=== PATIENT | female | born 1980 | race Caucasian/White ===

== ENCOUNTER 2017-10-16 19:31 | Emergency (ER) | END 2017-10-16 23:39 | disposition home or self-care (01) ==

== ENCOUNTER 2018-01-26 06:08 | Day surgery (SDC) | END 2018-01-26 12:05 | disposition home or self-care (01) ==

== ENCOUNTER 2018-10-04 15:56 | Observation (INO) | payer OTHER ==
[~2018-10-04] VITALS: Ht 157.5 cm; Wt 73.1 kg
[~2018-10-04 15:56] MED LIST: HYDR-4011 PO; IBUP-1561 PO; RANI150T35 PO
--- NOTE | 2018-10-04 20:50 | ERD ---
ER Documentation Chief Complaint Chief Complaint 8 WKS PREG WITH PELVIC PAIN & MINOR VAGINAL BLEEDING HPI 38-year-old female, presents to the emergency department, complaining of pelvic pain and vaginal bleeding for 1 day. The patient is a with a EGA 8 weeks by LMP 08/02/18, with well established care at [facility]. ROS All systems reviewed and are negative except as per history of present illness. Medications Home Meds Active Scripts Ranitidine Hcl* (Zantac*) 150 Mg Tablet, 150 MG PO BID PRN for EPIGASTRIC PAIN, #30 TAB Prov:THERESA SALAZAR MD 10/16/17 Hydrocodone/Acetaminophen ([place] 5-325 Tablet) 1 Each Tablet, 1 TAB PO Q6H PRN for PAIN, #20 TAB Prov:THERESA SALAZAR MD 10/16/17 Ibuprofen* (Motrin*) 400 Mg Tab, 400 MG PO Q8 PRN for PAIN AND OR ELEVATED TEMP, #15 TAB Prov:THERESA SALAZAR MD 10/16/17 Allergies Allergies: Coded Allergies: No Known Allergy (Unverified , 10/16/17) PMhx/Soc History of Surgery: Yes (csection x1) Anesthesia Reaction: No Hx Neurological Disorder: No Hx Respiratory Disorders: No Hx Cardiac Disorders: No Hx Psychiatric Problems: No Hx Miscellaneous Medical Probl: No Hx Alcohol Use: Yes (social) Hx Substance Use: No Hx Tobacco Use: No Physical Exam Vitals Vital Signs Date Temp Pulse Resp B/P (MAP) Pulse Ox O2 O2 Flow FiO2 Time Delivery Rate 10/04/18 98.8 84 16 126/62 98 Room Air 18:30 (83) 10/04/18 100.2 91 18 117/81 99 16:23 (93) Physical Exam Patient alert, oriented, vital signs stable, mild distress due to pain. HEENT: Normocephalic, atraumatic. EYES: PERRLA, EOMI, Sclera and conjunctiva appear normal. EARS: Canals clear, tympanic membranes WNL. THROAT: Normal oropharynx. NECK: Supple, No lymphadenopathy. Full ROM without pain or tenderness. HEART: RRR, no rubs, murmurs, clicks or gallops. LUNGS: Clear to auscultation. ABDOMEN: Soft, non-tender without masses or hepatosplenomegaly. : Normal external genitalia, abundant vaginal bleeding, os 1 cm open. EXTREMITIES: No edema bilaterally. BACK: Full ROM, no deformity, normal back exam NEURO: Cranial nerves grossly intact, no motor or sensory deficit Result Diagram: 10/05/18 0019 Results 24 hrs Laboratory Tests Test 10/04/18 21:18 10/04/18 22:50 10/05/18 00:19 POC Beta HCG, Qualitative POSITIVE White Blood Count 31.0 10^3/ul Red Blood Count 4.41 10^6/ul Hemoglobin 13.0 g/dl 13.2 g/dl Hematocrit 38.1 % 38.8 % Mean Corpuscular Volume 86.4 fl Mean Corpuscular Hemoglobin 29.5 pg Mean Corpuscular 34.1 g/dl Hemoglobin Concent Red Cell Distribution Width 13.1 % Platelet Count 335 10^3/UL Mean Platelet Volume 9.9 fl Immature Granulocytes % 1.200 % Neutrophils % % Lymphocytes % % Monocytes % % Eosinophils % % Basophils % % Nucleated Red Blood Cells % 0.0 /100WBC Immature Granulocytes # 0.360 10^3/ul Neutrophils # 10^3/ul Lymphocytes # 10^3/ul Monocytes # 10^3/ul Eosinophils # 10^3/ul Basophils # 10^3/ul Nucleated Red Blood Cells # 10^3/ul Pathologist Review (Hematology) YES Current Medications Medications Dose Sig/Lana Start Time Status Last (Trade) Ordered Route PRN Stop Time Admin Dose Reason Admin Sodium 500 ml @ Q1H STAT 10/04/18 DC 10/04/18 Chloride 500 mls/hr IV 20:54 21:19 10/04/18 21:53 650 mg ONCE STAT 10/04/18 DC 10/04/18 Acetaminophen PO 20:54 21:11 (Tylenol 10/04/18 20:56 Tab) 0.5 mg ONCE STAT 10/04/18 DC 10/04/18 Hydromorphone IV 22:56 23:06 HCl 10/04/18 22:57 (Dilaudid) Lactated 1,000 ml @ Q8H IV 10/04/18 10/05/18 Ringer's 125 mls/hr 23:40 00:22 Doxycycline 250 ml @ ONCE ONCE 10/05/18 Hyclate 100 250 mls/hr IVPB 07:00 mg/ Sodium 10/05/18 07:59 Chloride 0.2 mg Q6H PRN 10/05/18 Methylergonov IM VAGINAL 00:30 ine Maleate BLEEDING (Methergine) Morphine 2 mg QID PRN 10/05/18 Sulfate IV pain 00:30 (morphine) Procedures/MDM Vital signs stable, Physical exam unremarkable. Differential diagnosis include but not limited to: UTI, threatening , incomplete versus complete , ectopic , physiologic implantation bleeding, molar . Physical examination and clinical presentation most likely consistent with incomplete . During the ED course the patient remained hemodynamically stable with persistent pain and constant vaginal bleeding. Results and clinical impression discussed with patient who agrees with management. At this time, I consider, that the patient should be admitted, therefore, the laborist personal financial representative Dr. Mahoney was consulted, she kindly came to examine the patient and she will admit the patient for further evaluation and management. The patient was instructed regarding the outcomes and the potential complications like severe bleeding. Disclaimer: Inadvertent spelling and grammatical errors are likely due to EHR/dictation software use and do not reflect on the overall quality of patient care. Also, please note that the electronic time recorded on this note does not necessarily reflect the actual time of the patient encounter. Departure Diagnosis: Primary Impression: Incomplete Additional Impression: Vaginal bleeding before 22 weeks gestation Condition: Stable THERESA SALAZAR MD Oct 04, 2018 20:50
[2018-10-04] MEDS ORDERED: ACETAMINOPHEN 325 MG TAB PO STA (20:54)
[2018-10-04] MEDS ORDERED: SOD CHLORIDE 0.9% 500 ML IV STA (20:54)
[2018-10-04] MEDS ORDERED: HYDROmorphONE 0.5 MG/0.5 ML SYG IV STA (22:56)
--- NOTE | 2018-10-04 23:45 | HP ---
Date/Time of Note Date/Time of Note DATE: 10/04/18 TIME: 23:45 Assessment/Plan VTE Prophylaxis SCD applied (from Nsg): No SCD contraindicated: low risk/ambulating Pharmacological prophylaxis: NA/contraindicated Pharm contraindication: low risk/ambulating Lines/Catheters IV Catheter Type (from Nrsg): Saline Lock Central line still needed: No Urinary Cath still in place: No Assessment/Plan Hospital Course Amenorrhea for 9 weeks Known prior IUP per patient had a ultrasound that confirmed intrauterine Vaginal bleeding in first trimester, ultrasound consistent with presence of thickened heterogeneous endometrium consistent with incomplete miscarriage Heavy vaginal bleeding Discussed with patient regarding dilatation and curettage Risk and benefit of procedure including risk of infection, bleeding, damage to surrounding structure including uterine perforation and risk of damage to bowel and bladder as well as risk of blood transfusion in case of continuous bleeding and risk of transfusion including but limited not limited to blood borne infection including HIV, hepatitis B and C and transfusion reaction discussed with patient in detail informed consent was obtained Patient verbalized understanding all above risks. Currently vitals are stable. Bleeding decreased. Patient will be kept n.p.o. overnight Booked for D&C for tomorrow a.m. CBC type and screen requested Consent was signed Patient accept blood transfusion in case of emergency All questions were answered to patient's best satisfaction Result Diagram: 10/04/18 2250 Results 24hrs Laboratory Tests Test 10/04/18 21:18 10/04/18 22:50 POC Beta HCG, Qualitative POSITIVE H White Blood Count 31.0 #H Red Blood Count 4.41 Hemoglobin 13.0 Hematocrit 38.1 Mean Corpuscular Volume 86.4 Mean Corpuscular Hemoglobin 29.5 Mean Corpuscular Hemoglobin Concent 34.1 Red Cell Distribution Width 13.1 Platelet Count 335 Mean Platelet Volume 9.9 Immature Granulocytes % 1.200 H Neutrophils % Lymphocytes % Monocytes % Eosinophils % Basophils % Nucleated Red Blood Cells % 0.0 Immature Granulocytes # 0.360 H Neutrophils # Lymphocytes # Monocytes # Eosinophils # Basophils # Nucleated Red Blood Cells # Pathologist Review (Hematology) YES HPI/ROS Admit Date/Time Admit Date/Time 10/04/2018 Hx of Present Illness 38-year-old with amenorrhea for 9 weeks and intrauterine per patient by ultrasound done at her OB office and her last visit about a week ago. Patient presented with complaint of vaginal bleeding and cramps. Per patient called the nurse line and was suggested to go to see her primary OB however due to increased pain and cramps patient decided to come to emergency room. Patient reports had passed some tissues and blood clots while in the emergency room. I was consulted for evaluation for possible incomplete miscarriage. Patient had an ultrasound after she passed good amount of blood clot and tissue that showed evidence of thickened heterogeneous endometrium about 3.1 cm, with no evidence of fetus or gestational sac. Exam concerning for possible there was no ovarian cyst or mass. Clinical picture consistent with likely incomplete miscarriage. Arrived to the patient bedside. Patient denies currently any shortness of breath, chest pain, dizziness, lightheadedness. Reports was desired and planned LMP: August 02, 2018. Patient was given initially due date for May 09, 2019 however her ultrasound about a week ago was due date 12 05/05/2019 was given Reports history of fibroid uterus and placenta previa and prior . Status post x1 and prior . She is . was planned and desired. ROS Subjective hx not possible: other Constitutional: no complaints Eyes: no complaints ENT: no complaints Respiratory: no complaints Cardiovascular: no complaints Gastrointestinal: no complaints Genitourinary: bleeding Musculoskeletal: no complaints Skin: no complaints Neurologic: no complaints Endocrine: no complaints Lymphatic: no complaints Immunologic: no complaints PMH/Family/Social Past Medical History Past medical history: History of fibroid1. Past surgical history: 1. Status post laparoscopic cholecystectomy 2. 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: , status post x1 LMP: August 02, 2018 KHAI: 05/09/2019 Medications Current Medications Lactated Ringer's 1,000 ml @ 125 mls/hr Q8H IV ; Start 10/04/18 at 23:40; Status UNV Coded Allergies: No Known Allergy (Unverified , 10/16/17) Social History Smoking Status: Former smoker Exam/Review of Systems Vital Signs Vitals Vital Signs Date Temp Pulse Resp B/P (MAP) Pulse Ox O2 O2 Flow FiO2 Time Delivery Rate 10/04/18 98.8 84 16 126/62 98 Room Air 18:30 (83) Exam Constitutional: alert, oriented, well developed Psych: no complaints, nl mood/affect Head: normocephalic, atraumatic Eyes: nl conjunctiva, EOMI, nl lids ENMT: nl external ears & nose, nl lips & teeth, nl nasal mucosa & septum Neck: supple Respiratory: clear to auscultation, normal air movement Cardiovascular: regular rate and rhythm, nl pulses Gastrointestinal: soft, nl liver, spleen, non-tender Genitourinary - Female: nl adnexae, other (External genitalia, WNL. SSE: There is about 10 cc blood in the vault, No abnormal vaginal discharge noted. no CMT. No fullness or tenderness in adnexa, Uterus about 11 cm size, non tender.) Additional Comments PROCEDURE: US OB with transvaginal. CLINICAL INDICATION: Vaginal bleeding. Clinical estimated gestational age is 9 weeks 0 days with estimated date of delivery 05/09/2019 TECHNIQUE: Transabdominal and transvaginal views of the pelvis are available for review. COMPARISON: No prior studies are available for comparison. FINDINGS: No intrauterine seen. Uterus measures 11.2 x 5.6 x 7.4 cm. There is thickening of the endometrial cavity in the lower uterine segment with thickness approximate 3.1 cm with appearance of mixed echogenicity material in the endometrial cavity suggestive of blood products. No definite vascular flow is seen in the endometrial cavity. There is 1.9 cm rounded area of relative decreased echogenicity consistent with an intramural fibroid in the anterior body of the uterus. There is a 1.1 cm oval area of heterogeneous echotexture suggestive of an intramural fibroid in the posterior lower uterine body. The ovaries are unremarkable. There is a 1.6 cm right ovarian likely corpus luteum. Color flow and spectral analysis demonstrates venous flow in the right ovary. No adnexal mass is seen. Small amount of free fluid in cul-de-sac. IMPRESSION: of unknown location. No intrauterine seen. Enlarged uterus. There is thickening of the endometrial cavity in the lower uterine segment with thickness approximate 3.1 cm with appearance of mixed echogenicity material in the endometrial cavity suggestive of blood products. No definite vascular flow is seen in the endometrial cavity. There is 1.9 cm rounded area of relative decreased echogenicity consistent with an intramural fibroid in the anterior body of the uterus. 1.1 cm oval area of heterogeneous echotexture suggestive of an intramural fibroid in the posterior lower uterine body. No ectopic seen. Small amount of free fluid in cul-de-sac. Differential diagnosis includes early intrauterine , spontaneous and ectopic . Correlation with serial quantitative beta HCGs and follow-up ultrasound is recommended. ANNA GUTIÉRREZ MD Oct 04, 2018 23:45
[2018-10-05] VITALS (19 sets, daily range): BP systolic 82–113; BP diastolic 40–66; PULSE 72–82; RESP 12–21; Ht 157.5 cm; Wt 73.1 kg
[2018-10-05] MEDS: LACTATED RINGER'S 1,000 ML IV SCH ×2 (00:22→07:40)
[2018-10-05] MEDS ORDERED: morphine 2 MG INJ IV PRN (00:30)
[2018-10-05] MEDS ORDERED: METHYLERGONOVINE 0.2 MG INJ IM PRN (00:30)
[2018-10-05] MEDS ORDERED: SOD CHLORIDE 0.9% 1,000 ML IV ONE (04:00)
[2018-10-05] MEDS ORDERED: HYDROCODONE/APAP (10/325) TAB PO ONE (04:00)
[2018-10-05] MEDS ORDERED: SOD CHLORIDE 0.9% 500 ML IV ONE (06:00)
[2018-10-05] MEDS ORDERED: PROPOFOL 200 MG INJ ONE (07:00)
[2018-10-05] MEDS ORDERED: PHENYLephrine (100 MCG/ML) 5ML SYG ONE (07:00)
[2018-10-05] MEDS ORDERED: DESFLURANE 15 MIN ONE (07:00)
[2018-10-05] MEDS ORDERED: LIDOCAINE 2% (SDV) 5 ML INJ ONE (07:00)
[2018-10-05] MEDS ORDERED: DOXYCYCLINE 100 MG in SOD CHLORIDE 0.9% 250 ML IVPB ONE (07:00)
[2018-10-05] MEDS ORDERED: ONDANSETRON 4 MG INJ IV PRN ×2 (08:00→12:00)
--- NOTE | 2018-10-05 11:43 | PREAC ---
Date/Time of Note Date/Time of Note DATE: 10/05/18 TIME: 11:40 Anesthesia Eval and Record Evaluation Time Pre-Procedure Interview DATE: 10/05/18 TIME: 11:40 Age 38 Sex female NPO: 8 hrs Preoperative diagnosis incomplete @ 8 wks Planned procedure D&C Past Medical History Past Medical History: None Surgery & Anesthesia Issues No known issue Meds Anticoagulation: No Beta Matthew within 24 hr: No Reason Beta Matthew not given: Pt. not on B-Matthew Active Scripts Ranitidine Hcl* (Zantac*) 150 Mg Tablet, 150 MG PO BID PRN for EPIGASTRIC PAIN, #30 TAB Prov:THERESA SALAZAR MD 10/16/17 Hydrocodone/Acetaminophen ([place] 5-325 Tablet) 1 Each Tablet, 1 TAB PO Q6H PRN for PAIN, #20 TAB Prov:THERESA SALAZAR MD 10/16/17 Ibuprofen* (Motrin*) 400 Mg Tab, 400 MG PO Q8 PRN for PAIN AND OR ELEVATED TEMP, #15 TAB Prov:THERESA SALAZAR MD 10/16/17 Current Medications Ondansetron HCl (Zofran Inj) 4 mg Q4H PRN IV NAUSEA AND/OR VOMITING Last administered on 10/05/18at 08:01; Admin Dose 4 MG; Start 10/05/18 at 08:00 Meds reviewed: Yes Allergies Coded Allergies: No Known Allergy (Unverified , 10/16/17) Allergies Reviewed: Yes Labs/Studies Labs Reviewed: Reviewed by anesthesiologist Result Diagram: 10/05/18 0019 Laboratory Tests 10/04/18 22:50 10/05/18 00:19 Blood Bank Test 10/05/18 00:19 Antibody Screen NEGATIVE Blood Type A POSITIVE test: Positive Pre-procedure Exam Last vitals Vital Signs Date Temp Pulse Resp B/P (MAP) Pulse Ox O2 O2 Flow FiO2 Time Delivery Rate 10/05/18 97.9 80 18 104/54 99 Room Air 07:40 (71) Airway: Adequate mouth opening, Adequate thyromental dist Mallampati: Mallampati II Teeth: Abnormal (loose lower left molar) Lung: Normal Heart: Normal ASA Physical Status ASA physical status: 1 Emergency: None Planned Anesthetic General/MAC: LMA Pre-operative Attestations Prior to commencing anesthesia and surgery, the patient was re-evaluated, there was verification of: *The patient's identity *The results of appropriate recent lab work and preoperative vital signs *The above evaluation not changing prior to induction *Anesthetic plan, risk benefits, alternative and complications discussed with patient/family; questions answered; patient/family understands, accepts and wishes to proceed. MARQUES HORNE Oct 05, 2018 11:43
[2018-10-05] MEDS ORDERED: MIDAZOLAM 1 MG/ML 2 ML INJ ONE (11:50)
[2018-10-05] MEDS ORDERED: FENTAnyl 50 MCG/ML VIAL ONE (11:50)
[2018-10-05] MEDS ORDERED: ONDANSETRON 4 MG INJ ONE (11:51)
[2018-10-05] MEDS ORDERED: FAMOTIDINE 20 MG INJ ONE (11:51)
[2018-10-05] MEDS ORDERED: METOCLOPRAMIDE 10 MG INJ ONE (11:51)
[2018-10-05] MEDS ORDERED: FENTAnyl 50 MCG/ML VIAL IV PRN ×2 (12:00)
[2018-10-05] MEDS ORDERED: HYDROmorphONE 1 MG/5 ML IV SYRINGE IV PRN ×2 (12:00)
[2018-10-05] MEDS ORDERED: OXYCODONE/ACETAMINOPHEN (5/325) TAB PO PRN ×2 (12:00)
[2018-10-05] MEDS ORDERED: morphine (1 MG/ML) 10ML SYRINGE IV PRN ×2 (12:00)
[2018-10-05] MEDS ORDERED: DIPHENHYDRAMINE 50 MG INJ IV PRN (12:00)
[2018-10-05] MEDS ORDERED: ALBUTEROL 0.083% (NEB) 2.5 MG/3 ML AMP HHN PRN (12:00)
[2018-10-05] MEDS ORDERED: MEPERIDINE 25 MG INJ IV PRN (12:00)
[2018-10-05] MEDS ORDERED: LABETALOL HCL 20MG INJ IV PRN (12:00)
[2018-10-05] MEDS ORDERED: VASOPRESSIN 20 UNITS INJ ONE (12:08)
[2018-10-05] MEDS ORDERED: OXYTOCIN 10 UNIT INJ ONE (12:09)
--- NOTE | 2018-10-05 12:34 | PAC ---
Date/Time of Note Date/Time of Note DATE: 10/05/18 TIME: 12:33 Post-Anesthesia Notes Post-Anesthesia Note Last documented vital signs Vital Signs Date Temp Pulse Resp B/P Pulse Ox O2 O2 Flow FiO2 Time (MAP) Delivery Rate 10/05/18 97.9 99.1 80 87 18 18 104/54 99 99.1 Room 07:40 122 (71) 107 Air face mask 8L Activity: WNL Respiratory function: WNL Cardiovascular function: WNL Mental status: Baseline Pain reasonably controlled: Yes Hydration appropriate: Yes Nausea/Vomiting absent: Yes MARQUES HORNE Oct 05, 2018 12:34
--- NOTE | 2018-10-05 12:40 | OPR ---
Date/Time of Note Date/Time of Note DATE: 10/05/18 TIME: 12:30 Operative Report Free Text/Dictation 10/05/2018 Procedure Date: Oct 05, 2018 Preoperative Diagnosis 1. incomplete miscarriage 2. Vaginal bleeding Postoperative Diagnosis same Operation/Procedure Performed Dilatation and currettage Surgeon see signature line C.O.D. Audit Clerk Surgical scrub Anesthesia Type: general Anesthesiologist: MARQUES HORNE Estimated Blood Loss: 200 - 250 ml's Transfusion none Specimen Products of conception Grafts/Implants none Tubes/Drains N./A Complications none Pt Condition Post Procedure: stable Disposition: PACU Indications Vaginal bleeding in , incomplete SAB 38 years old female with amenorrhea for about 9 weeks and vaginal bleeding in consistent with incomplete SAB, presented with complaint of heavy vaginal bleeding. And ultrasound finding consistent with retained products of conception.. candidated for dilatation and curettage Risk and benefit of the incision and curettage including risk of infection, bleeding, damage to surrounding structures including uterine perforation and risk of injury to the bowel and bladder and risk of blood transfusion including but not limited to blood borne infection including HIV, hepatitis B and C and transfusion reaction discussed with the patient in detail and informed consent was obtained. Patient verbalized understanding all the above risks and desires to proceed she received 100 mg of doxycycline prior to be taken to the OR. She was then placed in the dorsal lithotomy position under general Adequate anesthesia. Timeout procedure was completed and patient identified correctly. After prepped and draped in the sterile fashion first a bivalve speculum was placed inside the vagina. Anterior lip of the cervix grasped using tenaculum., Uterine depth was measured using uterine sound was noted to be about 8-9 cm. Cervix was noted to be dilated enough to accommodate Hegar dilator #8. Then using a curette soft flexible #8 passed easily through the cervix the entire endometrial cavity and 360 degree was suctioned. After adequate removing of products of conception then using sharp curette the entire endometrial cavity and 360 degrees was curette. Gritty sensation noted. Hemostasis was complete. Bleeding subsided. Patient received Pitocin 40 units in IV as well as a dose of Methergine 0.2 mg. And after reassurance about adequate hemostasis the instrument removed from the vagina. Then the tenaculum removed from anterior lip of the cervix. Hemostasis was complete. Instrument and lap counts and sponge count correct x2. Patient tolerated procedure well and was transferred to recovery room in stable condition. ANNA GUTIÉRREZ MD Oct 05, 2018 12:40
[2018-10-05] MEDS ORDERED: IBUPROFEN 400 MG TAB PO PRN (13:00)
[2018-10-05] MEDS ORDERED: RANITIDINE 150 MG TAB PO PRN (13:00)
[2018-10-05] MEDS ORDERED: HYDROCODONE/APAP (5/325) TAB PO PRN (13:00)
[2018-10-05] MEDS ORDERED: DOXYCYCLINE 100 MG TAB ONE (13:11)
[2018-10-05] MEDS ORDERED: DOXYCYCLINE 100 MG TAB PO SCH (14:30)
== END 2018-10-05 17:15 | disposition home or self-care (01) ==
LOC: E/R 15:56 → 5EC 23:43 → UNDOADMIN 23:43 → 5EC 23:43
PROVIDERS: ADMIT Obstetrics & Gynecology Obstetrics; ATTEND Obstetrics & Gynecology Obstetrics
DX: O03.4 Incomplete spontaneous abortion without complication (principal)
CPT/HCPCS: 36415; 59812; 76801; 76817; 81025; 84703; 85014; 85018; 85025; 86850; 86900; 86901; 88305; 96361; 96374; 99285; G0378; J1170; J2250; J2270; J2370; J2405; J2590; J3010; J7030; J7040; J7050; J7120; J2765